=== PATIENT | female | born 1935 ===

== ENCOUNTER 2017-08-17 10:26 | Inpatient (IN) | payer MEDICARE, MEDICAID ==
[2017-08-17] MEDS ORDERED: Albuterol 0.083% Inhal Sol (2.5 mg/3 mL) UD INH STA (11:46)
--- NOTE | 2017-08-17 11:50 | ED PDOC ---
HPI: General Adult Time Seen by Provider: 08/17/17 11:48 Chief Complaint (Nursing): Abdominal Pain Chief Complaint (Provider): chest pain History Per: Patient (82 y/o female h/o DM/HTN here with coughing associated with post-tussive chest pain/ chills/near syncope x 2 days. Denies any vomiting /diarrhea/etc. Denies any abdominal pain. No h/o VT.) Past Medical History Reviewed: Historical Data, Nursing Documentation, Vital Signs Vital Signs: Last Vital Signs Temp 98.0 F 08/19/17 11:49 Pulse 75 08/19/17 11:49 Resp 18 08/19/17 11:49 BP 112/54 L 08/19/17 11:49 Pulse Ox 98 08/21/17 02:25 - Medical History PMH: HTN, Hypercholesterolemia - Surgical History Surgical History: Cholecystectomy - Family History Family History: States: Other - Home Medications Home Medications: Ambulatory Orders Medication Instructions Recorded MetFORMIN [glucoPHAGE] 1,000 mg PO BID 08/17/17 Azithromycin [Z-Jewel] 250 mg PO DAILY #6 tab 08/18/17 guaiFENesin [Robitussin] 100 mg PO Q6 #120 ml 08/18/17 Docusate [Colace] 100 mg PO BID #20 cap 08/19/17 SITagliptin [Januvia] 50 mg PO DAILY #30 tab 08/19/17 Valsartan [Diovan] 80 mg PO DAILY #30 tab 08/19/17 - Allergies Allergies/Adverse Reactions: Allergies Allergy/AdvReac Type Severity Reaction Status Date / Time No Known Allergies Allergy Verified 08/17/17 10:37 Review of Systems ROS Statement: Except As Marked, All Systems Reviewed And Found Negative Cardiovascular: Positive for: Chest Pain, Light Headedness Physical Exam - Reviewed Nursing Documentation Reviewed: Yes Vital Signs Reviewed: Yes - Physical Exam Appears: Positive for: Well, Non-toxic, No Acute Distress Head Exam: Positive for: ATRAUMATIC, NORMAL INSPECTION, NORMOCEPHALIC Skin: Positive for: Normal Color, Warm, DRY Eye Exam: Positive for: EOMI, Normal appearance, PERRL ENT: Positive for: Normal ENT Inspection Neck: Positive for: Normal, Painless ROM Cardiovascular/Chest: Positive for: Regular Rate, Rhythm Respiratory: Positive for: CNT, Normal Breath Sounds Gastrointestinal/Abdominal: Positive for: Normal Exam, Bowel Sounds, Soft Back: Positive for: Normal Inspection Extremity: Positive for: Normal ROM Neurologic/Psych: Positive for: Alert, Oriented - Laboratory Results Result Diagrams: 08/18/17 05:00 08/18/17 05:00 - ECG ECG Rhythm: Positive for: Sinus Rhythm (76bpm; with premature supraventericular complex; no ectopy; no acute changes) O2 Sat by Pulse Oximetry: 98 - Progress ED Course And Treament: DUONEB X 1 DOSE Vitals wnl afebrile NS 1 liter 500 ml per hour cxr: no obvious infiltrate noted. head ct: nad d/w dr. Sheth for admission. Would like d-dimer for evaluation. Request CT of chest for evaluation as well. d-dimer noted elevated. CTA chest ordered. Disposition - Clinical Impression Clinical Impression: Near syncope, Chest pain - Patient ED Disposition Is Patient to be Admitted: Yes - Disposition Disposition Time: 16:37 Condition: FAIR Handoff Comments: follow up on CTA chest. - Pt Status Changed To: Hospital Disposition Of: Inpatient - Admit Certification Admit to Inpatient:: After my assessment, the patient will require hospitalization for at least two midnights. This is because of the severity of symptoms shown, intensity of services needed, and/or the medical risk in this patient being treated as an outpatient.
[2017-08-17 12:59] LABS: VENOUS BLOOD GAS PCO2 48 mmHg (40-60)
[2017-08-17] MEDS ORDERED: Albuterol 0.083% Inhal Sol (2.5 mg/3 mL) UD ONE (13:13)
[2017-08-17 13:16] LABS: BASO # 0.1 K/uL (0.0-0.2); BASO % 1.3 % (0.0-2.0); EOS # 0.3 K/uL (0.0-0.7); EOS % 2.9 % (0.0-4.0); HEMATOCRIT 37.2 % (34.0-47.0); LYMPH # 1.1 K/uL (1.0-4.3); LYMPH % 11.3 % (20.0-40.0); MEAN CELL VOLUME 93.9 fl (81.0-99.0); MEAN CORPUSCULAR HEMOGLOBIN 31.7 pg (27.0-31.0); MEAN CORPUSCULAR HGB CONC 33.8 g/dL (33.0-37.0); MEAN PLATELET VOLUME 8.5 fl (7.2-11.7); MONO # 1.1 K/uL (0.0-0.8); MONO % 11.2 % (0.0-10.0); NEUT # 7.5 K/uL (1.8-7.0); NEUT % 73.3 % (50.0-75.0); NRBC % 0.1 % (0.0-0.0); RED CELL DISTRIBUTION WIDTH 12.9 % (11.5-14.5); WHITE BLOOD COUNT 10.2 K/uL (4.8-10.8)
[2017-08-17 13:24] LABS: ALB/GLOB RATIO 1.4 (1.0-2.1); ALKALINE PHOSPHATASE 54 U/L (38-126); ALT/SGPT 19 U/L (9-52); AST/SGOT 18 U/L (14-36); BILIRUBIN,TOTAL 0.8 mg/dl (0.2-1.3); BLOOD UREA NITROGEN 18 mg/dl (7-17); CALCIUM 9.5 mg/dL (8.4-10.2); CARBON DIOXIDE 26 mmol/L (22-30); CHLORIDE 101 mmol/L (98-107); GFR AFRICAN-AMERICAN > 60; GLUCOSE,RANDOM 199 mg/dL (65-105); MAGNESIUM 1.6 MG/DL (1.6-2.3); POTASSIUM 4.5 MMOL/L (3.6-5.0); SODIUM 136 mmol/l (132-148); TOTAL PROTEIN 7.1 G/DL (6.3-8.2)
[2017-08-17 13:48] LABS: RBC URINE 4 /hpf (0-3); URINE BILIRUBIN NEGATIVE (NEGATIVE); URINE BLOOD SMALL (NEGATIVE); URINE COLOR YELLOW (YELLOW); URINE GLUCOSE (UA) 50 mg/dL (Normal); URINE KETONE NEGATIVE (NEGATIVE); URINE LEUKOCYTE ESTERASE NEG Leu/uL (Negative); URINE PROTEIN NEGATIVE (NEGATIVE); WBC URINE 1 /hpf (0-5)
--- NOTE | 2017-08-17 16:57 | RAD ---
HISTORY: Cough. COMPARISON: No prior. TECHNIQUE: Chest PA and lateral FINDINGS: LUNGS: No active pulmonary disease. PLEURA: No significant pleural effusion identified. No pneumothorax apparent. CARDIOVASCULAR: No radiographic findings to suggest acute or significant cardiovascular disease. OSSEOUS STRUCTURES: No significant abnormalities. VISUALIZED UPPER ABDOMEN: Normal. OTHER FINDINGS: None. IMPRESSION: No active disease.
--- NOTE | 2017-08-17 17:43 | CT ---
PROCEDURE: CT HEAD WITHOUT CONTRAST. HISTORY: near syncope COMPARISON: None available. TECHNIQUE: Axial computed tomography images were obtained through the head/brain without intravenous contrast. Radiation dose: Total exam DLP = 741.74 mGy-cm. This CT exam was performed using one or more of the following dose reduction techniques: Automated exposure control, adjustment of the mA and/or kV according to patient size, and/or use of iterative reconstruction technique. FINDINGS: HEMORRHAGE: No intracranial hemorrhage. BRAIN: No mass effect or edema. No atrophy or chronic microvascular ischemic changes. VENTRICLES: Unremarkable. No hydrocephalus. CALVARIUM: Unremarkable. PARANASAL SINUSES: Unremarkable as visualized. No significant inflammatory changes. MASTOID AIR CELLS: Unremarkable as visualized. No inflammatory changes. OTHER FINDINGS: None. IMPRESSION: No evidence of acute intracranial hemorrhage intracranial collection mass effect or midline shift.
[2017-08-17] MEDS ORDERED: Iodixanol 320 MG/ML 100 ML BOTTLE IV ONE (18:16)
[2017-08-17] MEDS ORDERED: Sodium Chloride 0.9% 50 ML IV ONE (18:16)
--- NOTE | 2017-08-17 19:11 | CARD ---
APPROVED REPORT EKG Measurement Heart [id number] <Conclusion> Sinus rhythm with premature supraventricular complexes Left bundle branch block Abnormal ECG
--- NOTE | 2017-08-17 21:32 | CT ---
EXAM: CT Angiography Chest With Intravenous Contrast EXAM DATE/TIME: 08/17/2017 6:13 PM CLINICAL HISTORY: 82 years old, female; Signs and symptoms; Other: Near syncope; Additional info: R/O pe TECHNIQUE: Axial computed tomographic angiography images of the chest with intravenous contrast using pulmonary embolism protocol. All CT scans at this facility use one or more dose reduction techniques, viz.: automated exposure control; ma/kV adjustment per patient size (including targeted exams where dose is matched to indication; i.e. head); or iterative reconstruction technique. MIP reconstructed images were created and reviewed. Coronal and sagittal reformatted images were created and reviewed. CONTRAST: 80 mL of [id number] administered intravenously. COMPARISON: There are no prior studies for comparison. FINDINGS: Heart, aorta and Pulmonary arteries: Heart size is normal. There are coronary artery calcifications. There is no aneurysm.There are vascular calcifications. There are no pulmonary emboli. Lungs and pleural spaces: Trachea and main bronchi are patent. There is dependent atelectasis. There is minimal scarring at the lung bases. There is a calcified granuloma left lower lobe. There is atelectasis/scarring in the lingula. There are no effusions. Mediastinum: The esophagus is unremarkable. There are shotty mediastinal nodes. There is a 1.4 x 1.2 cm right hilar node. Thyroid: Thyroid is not optimally demonstrated. Bones/joints: There are degenerative changes in the osseus structures. Soft tissues: unremarkable Upper abdomen: There are no acute abnormalities in the visualized portion of the abdomen. Pancreas is atrophic. IMPRESSION: No pulmonary embolus; atherosclerotic disease; shotty adenopathy Additional findings as described above.
--- NOTE | 2017-08-17 21:39 | ED PDOC ---
- Laboratory Results Result Diagrams: 08/17/17 12:50 08/17/17 12:50 - ECG O2 Sat by Pulse Oximetry: 98 - Progress ED Course And Treament: Case endorsed to story writer from Tom RUBIO pending CTA chest results. EXAM: CT Angiography Chest With Intravenous Contrast EXAM DATE/TIME: 08/17/2017 6:13 PM CLINICAL HISTORY: 82 years old, female; Signs and symptoms; Other: Near syncope; Additional info: R/O pe TECHNIQUE: Axial computed tomographic angiography images of the chest with intravenous contrast using pulmonary embolism protocol. All CT scans at this facility use one or more dose reduction techniques, viz.: automated exposure control; ma/kV adjustment per patient size (including targeted exams where dose is matched to indication; i.e. head); or iterative reconstruction technique. MIP reconstructed images were created and reviewed. Coronal and sagittal reformatted images were created and reviewed. CONTRAST: 80 mL of [id number] administered intravenously. COMPARISON: There are no prior studies for comparison. FINDINGS: Heart, aorta and Pulmonary arteries: Heart size is normal. There are coronary artery calcifications. There is no aneurysm.There are vascular calcifications. There are no pulmonary emboli. Lungs and pleural spaces: Trachea and main bronchi are patent. There is dependent atelectasis. There is minimal scarring at the lung bases. There is a calcified granuloma left lower lobe. There is atelectasis/scarring in the lingula. There are no effusions. Mediastinum: The esophagus is unremarkable. There are shotty mediastinal nodes. There is a 1.4 x 1.2 cm right hilar node. Thyroid: Thyroid is not optimally demonstrated. Bones/joints: There are degenerative changes in the osseus structures. Soft tissues: unremarkable Upper abdomen: There are no acute abnormalities in the visualized portion of the abdomen. Pancreas is atrophic IMPRESSION: No pulmonary embolus; atherosclerotic disease; shotty adenopathy Additional findings as described above. Patient to be placed in observation tele as previously arranged. Disposition - Clinical Impression Clinical Impression: Near syncope, Chest pain - POA Present On Arrival: Poor Glycemic Control - Disposition Disposition: Hospitalized as Observation Patient Disposition Time: 21:30 Condition: FAIR
[2017-08-18] MEDS: Albuterol-Ipratrop 3 mg / 0.5 (3 ml) UD INH SCH (01:07)
[2017-08-18 06:02] LABS: HEMATOCRIT 36.7 % (34.0-47.0); MEAN CELL VOLUME 93.7 fl (81.0-99.0); MEAN CORPUSCULAR HEMOGLOBIN 31.7 pg (27.0-31.0); MEAN CORPUSCULAR HGB CONC 33.9 g/dL (33.0-37.0); RED CELL DISTRIBUTION WIDTH 13.2 % (11.5-14.5); WHITE BLOOD COUNT 5.8 K/uL (4.8-10.8)
[2017-08-18 06:11] LABS: ALB/GLOB RATIO 1.4 (1.0-2.1); ALKALINE PHOSPHATASE 53 U/L (38-126); ALT/SGPT 19 U/L (9-52); AST/SGOT 18 U/L (14-36); BILIRUBIN,TOTAL 0.7 mg/dl (0.2-1.3); BLOOD UREA NITROGEN 17 mg/dl (7-17); CALCIUM 9.2 mg/dL (8.4-10.2); CARBON DIOXIDE 29 mmol/L (22-30); CHLORIDE 101 mmol/L (98-107); GFR AFRICAN-AMERICAN > 60; GLUCOSE,RANDOM 225 mg/dL (65-105); POTASSIUM 4.5 MMOL/L (3.6-5.0); SODIUM 139 mmol/l (132-148)
[2017-08-18] MEDS ORDERED: Insulin Regular 100 units/ml SC SCH ×2 (07:30→11:12)
[2017-08-18] MEDS: Enoxaparin 40 mg Syringe SC SCH (09:51)
[2017-08-18] MEDS: Azithromycin 500 MG in Sodium Chloride 0.9% 250 ML IVPB SCH (09:51)
[2017-08-18] MEDS ORDERED: guaiFENesin 100 mg/5 ml Syrup UD PO PRN (14:39)
--- NOTE | 2017-08-18 14:51 | CP.PCM.PCO ---
Assessment/Plan - Assessment/Plan Assessment (Free Text): Pt stable, in no apparent distress. Heart S1S2, lungs clear, abdomen soft, non tender. Pt aao x 3. Denies cp, sob, f/c/n/v. BG down to 200s. All lab tests, imaging and EKG reviewed with Dr. Arita. Pt seen and cleared for d/c home by Dr. Arita. Rx given for z-paka and Robitussin cough syrup. Pt to f/u with PMD and investment accountant in 1 week. Discharge instructions given. - Problems Patient Problems: Problem List (Active/Current) Problem Status Onset Code Chest pain Acute R07.9 Near syncope Acute R55
--- NOTE | 2017-08-18 16:47 | CARD ---
APPROVED REPORT EKG Measurement Heart [id number] <Conclusion> Sinus rhythm with premature atrial complexes Left bundle branch block Abnormal ECG
--- NOTE | 2017-08-18 16:52 | CARD ---
APPROVED REPORT EKG Measurement Heart [id number] <Conclusion> Sinus rhythm with premature supraventricular complexes Left bundle branch block Abnormal ECG
--- NOTE | 2017-08-18 23:08 | CP.PCM.HP ---
History of Present Illness - History of Present Illness History of Present Illness: An 82 yr old female with hf DM,HTN visiting from [facility] brought by daughter for coughing associated with chest pain , all over chest worse with cough and chest movement / chills/near syncope x 2 days. Denies any Fever ,vomiting/ diarrhea/etc. notes she does not know what meds she takes, unable to provide pharmacy, also daughter not aware that she is on meds. so far cardiac work up negative, CT chest negative for PE,PNEUMONIA feels little better. Past Patient History - Past Medical History & Family History Past Medical History?: Yes - Past Social History Smoking Status: Never Smoked - CARDIAC Hx Cardiac Disorders: Yes Hx Hypercholesterolemia: Yes Hx Hypertension: Yes - PULMONARY Hx Respiratory Disorders: Yes - NEUROLOGICAL Hx Neurological Disorder: No - HEENT Hx HEENT Problems: No - RENAL Hx Chronic Kidney Disease: No - ENDOCRINE/METABOLIC Hx Endocrine Disorders: Yes Hx Diabetes Mellitus Type 2: Yes - HEMATOLOGICAL/ONCOLOGICAL Hx Blood Disorders: No Hx AIDS: No Hx Human Immunodeficiency Virus (HIV): No - INTEGUMENTARY Hx Dermatological Problems: No - MUSCULOSKELETAL/RHEUMATOLOGICAL Hx Musculoskeletal Disorders: No Hx Falls: No - GASTROINTESTINAL Hx Gastrointestinal Disorders: No - GENITOURINARY/GYNECOLOGICAL Hx Genitourinary Disorders: No - PSYCHIATRIC Hx Psychophysiologic Disorder: No Hx Substance Use: No - SURGICAL HISTORY Hx Surgeries: Yes Hx Cholecystectomy: Yes - ANESTHESIA Hx Anesthesia: Yes Hx Anesthesia Reactions: No Meds Home Medications: Home Medication List Medication Instructions Recorded Confirmed Type Azithromycin [Z-Jewel] 250 mg PO DAILY #6 tab 08/18/17 Rx guaiFENesin [Robitussin] 100 mg PO Q6 #120 ml 08/18/17 Rx Allergies/Adverse Reactions: Allergies Allergy/AdvReac Type Severity Reaction Status Date / Time No Known Allergies Allergy Verified 08/17/17 10:37 Physical Exam - Additional Findings Additional findings: Appears: Positive for: Non-toxic, No Acute Distress Head Exam: Positive for: ATRAUMATIC. Negative for: NORMOCEPHALIC Eye Exam: Positive for: Normal appearance, EOMI, PERRL (PERRLA) Neck: Positive for: Normal ,no carotid bruit . PHaryngeal erythema Cardiovascular/Chest: Positive for: Regular Rate, Rhythm, Chest Non Tender. Negative for: Murmur Respiratory: Positive for: Normal Breath Sounds. Negative for: Respiratory Distress, wheezing, rhonchi etc Gastrointestinal/Abdominal: Positive for: Normal Exam, Soft, BM2 + Negative for : Tenderness Extremity: Positive for: Normal ROM. Negative for: Deformity Neurologic/Psych: Positive for: Alert, Oriented (x3). Negative for: Motor/ Sensory Deficits Results - Vital Signs Recent Vital Signs: Last Vital Signs Temp 98 F 08/18/17 20:05 Pulse 68 08/18/17 20:05 Resp 14 08/18/17 20:05 BP 105/57 L 08/18/17 20:05 Pulse Ox 100 08/18/17 20:05 - Labs Result Diagrams: 08/18/17 05:00 08/18/17 05:00 Labs: Laboratory Results - last 24 hr 08/17/17 08/17/17 08/18/17 10:49 21:40 05:00 WBC 5.8 RBC 3.92 Hgb 12.4 Hct 36.7 MCV 93.7 MCH 31.7 H MCHC 33.9 RDW 13.2 Plt Count 242 Sodium Potassium Chloride Carbon Dioxide Anion Gap BUN Creatinine Est GFR ( Amer) Est GFR (Non-Af Amer) POC Glucose (mg/dL) 267 H 280 H Random Glucose Hemoglobin A1c Calcium Total Bilirubin AST ALT Alkaline Phosphatase Troponin I Total Protein Albumin Globulin Albumin/Globulin Ratio 08/18/17 08/18/17 08/18/17 05:00 05:00 05:06 WBC RBC Hgb Hct MCV MCH MCHC RDW Plt Count Sodium 139 Potassium 4.5 Chloride 101 Carbon Dioxide 29 Anion Gap 14 BUN 17 Creatinine 0.9 Est GFR ( Amer) > 60 Est GFR (Non-Af Amer) > 60 POC Glucose (mg/dL) 263 H Random Glucose 225 H Hemoglobin A1c 8.1 H Calcium 9.2 Total Bilirubin 0.7 AST 18 ALT 19 Alkaline Phosphatase 53 Troponin I < 0.0120 Total Protein 7.0 Albumin 4.1 Globulin 2.9 Albumin/Globulin Ratio 1.4 08/18/17 08/18/17 08/18/17 11:04 11:50 14:23 WBC RBC Hgb Hct MCV MCH MCHC RDW Plt Count Sodium Potassium Chloride Carbon Dioxide Anion Gap BUN Creatinine Est GFR ( Amer) Est GFR (Non-Af Amer) POC Glucose (mg/dL) 404 H* 226 H Random Glucose Hemoglobin A1c Calcium Total Bilirubin AST ALT Alkaline Phosphatase Troponin I < 0.0120 Total Protein Albumin Globulin Albumin/Globulin Ratio 08/18/17 08/18/17 08/18/17 15:22 16:57 21:11 WBC RBC Hgb Hct MCV MCH MCHC RDW Plt Count Sodium Potassium Chloride Carbon Dioxide Anion Gap BUN Creatinine Est GFR ( Amer) Est GFR (Non-Af Amer) POC Glucose (mg/dL) 69 118 H 216 H Random Glucose Hemoglobin A1c Calcium Total Bilirubin AST ALT Alkaline Phosphatase Troponin I Total Protein Albumin Globulin Albumin/Globulin Ratio Assessment & Plan (1) Chest pain Status: Acute Comment: trops\EKG-q 8hr. naa muecular. ASA. positive d-dimers-CT chest (2) Near syncope Assessment and Plan: IVF neurochecks naa due to poor eating Status: Acute (3) Essential (primary) hypertension Status: Chronic (4) Type 2 diabetes mellitus without complications Assessment and Plan: hold metformin due to contrast hba1c accucheks\ RISS diet Status: Chronic
[2017-08-19] MEDS: Albuterol-Ipratrop 3 mg / 0.5 (3 ml) UD INH SCH ×2 (01:00→07:32)
[2017-08-19] MEDS: Enoxaparin 40 mg Syringe SC SCH (08:07)
[2017-08-19] MEDS: Azithromycin 500 MG in Sodium Chloride 0.9% 250 ML IVPB SCH (08:09)
[2017-08-19 08:11] VITALS: RESP 18
[2017-08-19] MEDS ORDERED: Bisacodyl 5mg EC Tab PO SCH (11:00)
[2017-08-19 11:50] VITALS: BP 112/54; PULSE 75; TEMP 98
--- NOTE | 2017-08-20 00:05 | CP.PCM.DIS ---
Provider - Provider Date of Admission: 08/17/17 16:45 Attending physician: Alonso Arita MD Time Spent in preparation of Discharge (in minutes): 30 Diagnosis - Discharge Diagnosis (1) Chest pain Status: Acute (2) Near syncope Status: Acute (3) Essential (primary) hypertension Status: Chronic (4) Type 2 diabetes mellitus without complications Status: Chronic Hospital Course - Lab Results Lab Results: Micro Results 08/17/17 12:50 Blood-Venous Blood Culture - Preliminary NO GROWTH AFTER 48 HOURS 08/17/17 13:15 Urine,Random Urine Culture - Final No Growth (<1,000 CFU/ML) Most Recent Lab Values WBC 5.8 K/uL (4.8-10.8) 08/18/17 05:00 RBC 3.92 Mil/uL (3.80-5.20) 08/18/17 05:00 Hgb 12.4 g/dL (12.0-16.0) 08/18/17 05:00 Hct 36.7 % (34.0-47.0) 08/18/17 05:00 MCV 93.7 fl (81.0-99.0) 08/18/17 05:00 MCH 31.7 pg (27.0-31.0) H 08/18/17 05:00 MCHC 33.9 g/dL (33.0-37.0) 08/18/17 05:00 RDW 13.2 % (11.5-14.5) 08/18/17 05:00 Plt Count 242 K/uL (130-400) 08/18/17 05:00 MPV 8.5 fl (7.2-11.7) 08/17/17 12:50 Neut % (Auto) 73.3 % (50.0-75.0) 08/17/17 12:50 Lymph % (Auto) 11.3 % (20.0-40.0) L 08/17/17 12:50 Greenlee % (Auto) 11.2 % (0.0-10.0) H 08/17/17 12:50 Eos % (Auto) 2.9 % (0.0-4.0) 08/17/17 12:50 Baso % (Auto) 1.3 % (0.0-2.0) 08/17/17 12:50 Neut # 7.5 K/uL (1.8-7.0) H 08/17/17 12:50 Lymph # 1.1 K/uL (1.0-4.3) 08/17/17 12:50 Greenlee # 1.1 K/uL (0.0-0.8) H 08/17/17 12:50 Eos # 0.3 K/uL (0.0-0.7) 08/17/17 12:50 Baso # 0.1 K/uL (0.0-0.2) 08/17/17 12:50 D-Dimer, Quantitative 255 ng/mlDDU (0-230) H 08/17/17 16:35 pO2 26 mm/Hg (30-55) L 08/17/17 12:48 VBG pH 7.40 (7.32-7.43) 08/17/17 12:48 VBG pCO2 48 mmHg (40-60) 08/17/17 12:48 VBG HCO3 26.8 mmol/L 08/17/17 12:48 VBG Total CO2 31.2 mmol/L (22-28) H 08/17/17 12:48 VBG O2 Sat (Calc) 54.0 % (40-65) 08/17/17 12:48 VBG Base Excess 4.0 mmol/L (0.0-2.0) H 08/17/17 12:48 VBG Potassium 4.3 mmol/L (3.6-5.2) 08/17/17 12:48 A-a O2 Difference 64.0 mm/Hg 08/17/17 12:48 Sodium 137.0 mmol/L (132-148) 08/17/17 12:48 Chloride 101.0 mmol/L (98-107) 08/17/17 12:48 Glucose 213 mg/dL (65-105) H 08/17/17 12:48 Lactate 1.1 mmol/L (0.7-2.1) 08/17/17 12:48 FiO2 21.0 % 08/17/17 12:48 Crit Value Called To Enrique hough 08/17/17 12:48 Crit Value Called By Daniela 08/17/17 12:48 Crit Value Read Back Y 08/17/17 12:48 Blood Gas Notified Time 1258 08/17/17 12:48 Sodium 139 mmol/l (132-148) 08/18/17 05:00 Potassium 4.5 MMOL/L (3.6-5.0) 08/18/17 05:00 Chloride 101 mmol/L (98-107) 08/18/17 05:00 Carbon Dioxide 29 mmol/L (22-30) 08/18/17 05:00 Anion Gap 14 (10-20) 08/18/17 05:00 BUN 17 mg/dl (7-17) 08/18/17 05:00 Creatinine 0.9 mg/dL (0.7-1.2) 08/18/17 05:00 Est GFR ( Amer) > 60 08/18/17 05:00 Est GFR (Non-Af Amer) > 60 08/18/17 05:00 POC Glucose (mg/dL) 266 mg/dL (65-110) H 08/19/17 10:34 Random Glucose 225 mg/dL (65-105) H 08/18/17 05:00 Hemoglobin A1c 8.1 % (4.2-6.5) H 08/18/17 05:00 Calcium 9.2 mg/dL (8.4-10.2) 08/18/17 05:00 Magnesium 1.6 MG/DL (1.6-2.3) 08/17/17 12:50 Total Bilirubin 0.7 mg/dl (0.2-1.3) 08/18/17 05:00 AST 18 U/L (14-36) 08/18/17 05:00 ALT 19 U/L (9-52) 08/18/17 05:00 Alkaline Phosphatase 53 U/L (38-126) 08/18/17 05:00 Troponin I < 0.0120 ng/mL (0.00-0.120) 08/18/17 11:50 NT-Pro-B Natriuret Pep 1220 pg/ml (0-900) H 08/17/17 12:50 Total Protein 7.0 G/DL (6.3-8.2) 08/18/17 05:00 Albumin 4.1 g/dL (3.5-5.0) 08/18/17 05:00 Globulin 2.9 gm/dL (2.2-3.9) 08/18/17 05:00 Albumin/Globulin Ratio 1.4 (1.0-2.1) 08/18/17 05:00 Venous Blood Potassium 4.3 mmol/L (3.6-5.2) 08/17/17 12:48 Urine Color Yellow (YELLOW) 08/17/17 13:15 Urine Clarity Slighty-cloudy (Clear) 08/17/17 13:15 Urine pH 6.0 (5.0-8.0) 08/17/17 13:15 Ur Specific [place] 1.017 (1.003-1.030) 08/17/17 13:15 Urine Protein Negative mg/dL (NEGATIVE) 08/17/17 13:15 Urine Glucose (UA) 50 mg/dL (Normal) 08/17/17 13:15 Urine Ketones Negative mg/dL (NEGATIVE) 08/17/17 13:15 Urine Blood Small (NEGATIVE) 08/17/17 13:15 Urine Nitrate Negative (NEGATIVE) 08/17/17 13:15 Urine Bilirubin Negative (NEGATIVE) 08/17/17 13:15 Urine Urobilinogen 2.0 mg/dL (0.2-1.0) H 08/17/17 13:15 Ur Leukocyte Esterase Neg Miguel/uL (Negative) 08/17/17 13:15 Urine RBC (Auto) 4 /hpf (0-3) H 08/17/17 13:15 Urine Microscopic WBC 1 /hpf (0-5) 08/17/17 13:15 Ur Squamous Epith Cells 3 /hpf (0-5) 08/17/17 13:15 Hyaline Casts 0-2 /hpf (0-2) 08/17/17 13:15 Influenza Typ A,B (EIA) Negative for flu a/b (NEGATIVE) 08/17/17 13:05 - Hospital Course Hospital Course: BS better controlled. on norvasc at home. due to DM, changed to diovan added januvia Discharge Exam - Head Exam Head Exam: ATRAUMATIC, NORMAL INSPECTION, NORMOCEPHALIC Discharge Plan - Discharge Medications Prescriptions: Docusate [Colace] 100 mg PO BID #20 cap Valsartan [Diovan] 80 mg PO DAILY #30 tab SITagliptin [Januvia] 50 mg PO DAILY #30 tab guaiFENesin [Robitussin] 100 mg PO Q6 #120 ml Azithromycin [Z-Jewel] 250 mg PO DAILY #6 tab - Follow Up Plan Condition: FAIR Disposition: HOME/ ROUTINE Instructions: Syncope (DC), Diabetes Mellitus Type 2 in Adults (DC) Additional Instructions: Complete all antibiotics. Follow up with your PMD and telephone sex worker in 1 week. Return to emergency department or call 911 if symptoms return.
[2017-08-21 02:24] VITALS: O2SAT 98
== END 2017-08-19 13:21 | disposition home or self-care (01) | DRG 313 ==
LOC: H.ER 10:26 → H.ERHOLD 16:45 → H.TEL 22:37
PROVIDERS: ADMIT Internal Medicine; ATTEND Internal Medicine
DX: R07.89 Other chest pain (principal); E11.9 Type 2 diabetes mellitus without complications; I10 Essential (primary) hypertension; R55 Syncope and collapse; E78.00 Pure hypercholesterolemia, unspecified; Z90.49 Acquired absence of other specified parts of digestive tract; R05 Cough; R68.83 Chills (without fever); R10.9 Unspecified abdominal pain